=== PATIENT | female | born 1965 | race Caucasian/White ===

== ENCOUNTER 2016-12-09 19:44 | Inpatient (IN) | payer MEDICAID ==
[~2016-12-09] VITALS: Ht 167.6 cm; Wt 97.0 kg
[2016-12-09 21:07] LABS: INR 1.1; PROTIME 14.2 Sec (12.2-14.2); PT RATIO 1.1
[2016-12-09 21:08] LABS: PARTIAL THROMBOPLASTIN TIME 28.1 Sec (25.0-35.0)
[2016-12-09 21:10] LABS: ALANINE AMINOTRANSFERASE 32 IU/L (13-69); ALBUMIN 4.3 g/dl (3.3-4.9); ALBUMIN/GLOBULIN RATIO 1.43; ALKALINE PHOSPHATASE 67 IU/L (42-121); ANION GAP 16 (8-16); ASPARTATE AMINO TRANSFERASE 16 IU/L (15-46); BILIRUBIN,INDIRECT 0.5 mg/dl (0-1.1); BILIRUBIN,TOTAL 0.5 mg/dl (0.2-1.3); BLOOD UREA NITROGEN 9 mg/dl (7-20); CALCIUM 9.2 mg/dl (8.4-10.2); CARBON DIOXIDE 26 mmol/L (21-31); CHLORIDE 103 mmol/L (97-110); CREATININE 0.71 mg/dl (0.44-1.00); GLUCOSE 98 mg/dl (70-220); POTASSIUM 4.2 mmol/L (3.5-5.1); SODIUM 141 mmol/L (135-144); TOTAL PROTEIN 7.3 g/dl (6.1-8.1)
[2016-12-09 21:14] LABS: ABNORMAL IP MESSAGE 1; HEMATOCRIT 21.3 % (37.0-47.0); MEAN CORPUSCULAR HEMOGLOBIN 16.3 pg (29.0-33.0); MEAN CORPUSCULAR HGB CONC 25.8 g/dl (32.0-37.0); MEAN PLATELET VOLUME 9.5 fl (7.4-10.4); PLATELET COUNT 237 10^3/UL (140-415); RED BLOOD COUNT 3.38 10^6/ul (4.20-5.40); RED CELL DISTRIBUTION WIDTH 21.4 % (11.5-14.5); WHITE BLOOD COUNT 4.6 10^3/ul (4.8-10.8)
[2016-12-09 21:16] LABS: HEMOGLOBIN 5.5 g/dl (12.0-16.0); POSITIVE DIFF @See below
[2016-12-09 21:34] LABS: TROPONIN-I < 0.012 ng/ml (0.00-0.12)
[2016-12-09 21:45] LABS: EOSINOPHILS # 0.1 10^3/ul (0.0-0.5); MONOCYTE # 0.2 10^3/ul (0.3-0.9); MONOCYTES % (M) 5 % (0-11); NEUTROPHIL # 3.2 10^3/ul (1.6-7.5)
[2016-12-09 21:46] LABS: HYPOCHROMASIA 3+ (0-0)
[2016-12-09] MEDS ORDERED: SOD CHLORIDE 0.9% 250 ML IV ONE (22:10)
--- NOTE | 2016-12-09 22:21 | ERA ---
ER Documentation Chief Complaint Date/Time DATE: 12/09/16 TIME: 22:20 Chief Complaint Hgb 5.5 beeds blood transfusion HPI Patient is a 51-year-old female with no medical problems who presents with low hemoglobin and high TSH. She had routine blood test done and was called by her doctor to go to the ER because of the abnormal results. She denies bleeding. She does feel diffuse weakness and headache. She has had no treatment as of yet. ROS All systems reviewed and are negative except as per history of present illness. Medications Home Meds No Active Prescriptions or Reported Meds Allergies Allergies: Coded Allergies: No Known Allergy (Unverified , 12/09/16) PMhx/Soc Medical and Surgical Hx: pt denies Medical Hx, pt denies Surgical Hx Hx Miscellaneous Medical Probl: Yes Hx Alcohol Use: No Hx Substance Use: No Hx Tobacco Use: No Smoking Status: Never smoker FmHx Family History: diabetes Physical Exam Vitals Vital Signs Date Time Temp Pulse Resp B/P Pulse Ox O2 Delivery O2 Flow Rate FiO2 12/09/16 20:39 99.5 80 22 142/73 100 Room Air 12/09/16 19:51 99.5 90 22 154/75 97 Physical Exam Const: No acute distress Head: Atraumatic Eyes: Normal Conjunctiva ENT: Normal External Ears, Nose and Mouth. Neck: Full range of motion..~ No meningismus. Resp: Clear to auscultation bilaterally Cardio: Regular rate and rhythm, no murmurs Abd: Soft, non tender, non distended. Normal bowel sounds Skin: Pale skin Back: No midline or flank tenderness Ext: No cyanosis, or edema Neur: Awake and alert Psych: Normal Mood and Affect Result Diagram: 12/09/16202912/09/16 2030 Results 24 hrs Laboratory Tests Test 12/09/16 20:30 White Blood Count 4.610^3/ul Red Blood Count 3.3810^6/ul Hemoglobin 5.5g/dl Hematocrit 21.3% Mean Corpuscular Volume 63.0fl Mean Corpuscular Hemoglobin 16.3pg Mean Corpuscular Hemoglobin Concent 25.8g/dl Red Cell Distribution Width 21.4% Platelet Count 77398^3/UL Mean Platelet Volume 9.5fl Neutrophils % % Segmented Neutrophils % (Manual) 70% Lymphocytes % % Lymphocytes % (Manual) 22% Monocytes % % Monocytes % (Manual) 5% Eosinophils % % Eosinophils % (Manual) 3.0% Basophils % % Nucleated Red Blood Cells % 0.0/100WBC Neutrophils # 3.210^3/ul Absolute Lymphocytes (Manual) 1.010^3/ul Lymphocytes # 1.010^3/ul Monocytes # 0.210^3/ul Absolute Monocytes (Manual) 0.210^3/ul Eosinophils # 0.110^3/ul Basophils # 10^3/ul Nucleated Red Blood Cells # 10^3/ul Hypochromasia 3+ Rouleau 2+ Prothrombin Time 14.2Sec Prothrombin Time Ratio 1.1 INR International Normalized Ratio 1.10 Activated Partial Thromboplast Time 28.1Sec Sodium Level 141mmol/L Potassium Level 4.2mmol/L Chloride Level 103mmol/L Carbon Dioxide Level 26mmol/L Anion Gap 16 Blood Urea Nitrogen 9mg/dl Creatinine 0.71mg/dl Glucose Level 98mg/dl Calcium Level 9.2mg/dl Total Bilirubin 0.5mg/dl Direct Bilirubin 0.00mg/dl Indirect Bilirubin 0.5mg/dl Aspartate Amino Transf (AST/SGOT) 16IU/L Alanine Aminotransferase (ALT/SGPT) 32IU/L Alkaline Phosphatase 67IU/L Troponin I < 0.012ng/ml Total Protein 7.3g/dl Albumin 4.3g/dl Globulin 3.00g/dl Albumin/Globulin Ratio 1.43 Thyroid Stimulating Hormone (TSH) Pending Current Medications Medications (Trade) Dose Ordered Sig/Tonia Route PRN Reason Start Time Stop Time Status Last Admin Dose Admin Sodium Chloride (NS) 250 ml @ 0 mls/hr Q0M ONCE IV 12/09/16 22:10 12/09/16 22:11 DC Ondansetron HCl (Zofran Inj) 4 mg BRIDGE ORDER PRN IV NAUSEA AND/OR VOMITING 12/09/16 22:30 12/10/16 22:29 Acetaminophen (Tylenol Tab) 650 mg ER BRIDGE PRN PO MILD PAIN/FEVER 12/09/16 22:30 12/10/16 22:29 Procedures/MDM EKG read by me: Rate/Rhythm: Regular rate and rhythm at a rate of 77 Intervals: Normal Impression: No evidence of ischemia or arrhythmia Patient is a 51-year-old female who presents with low hemoglobin and high TSH. I believe the patient likely has hypothyroidism but I am concerned about her hemoglobin of 5.5. She is likely having weakness diffusely because of this hemoglobin. The patient will be given 4 units of packed red blood cells for resuscitation. The patient will be admitted to the care of Dr. Francis from the panel team for admission. At this point there is no sign of active bleeding. Critical Care: Time: 35 minutes excluding all billable procedures. Treatments/Evaluations: Close monitoring and treatment of unstable vital signs, cardiorespiratory, and neurologic status, while maintaining tight balance of fluid, respiratory, and cardiac interventions. Departure Diagnosis: Primary Impression: Anemia Qualified Code: D64.9 - Anemia, unspecified type Additional Impression: Hypothyroid Qualified Code: E03.9 - Hypothyroidism, unspecified type Condition: Serious ARUNA BARRETT MD Dec 09, 2016 22:21
[2016-12-09] MEDS ORDERED: ONDANSETRON 4 MG INJ IV PRN (22:30)
[2016-12-09] MEDS ORDERED: ACETAMINOPHEN 325 MG TAB PO PRN (22:30)
[2016-12-10] VITALS (12 sets, daily range): BP systolic 119–183; BP diastolic 67–83; PULSE 70–87; RESP 14–34; TEMP 98.8; Ht 167.6 cm; Wt 97.0 kg
[2016-12-10] MEDS ORDERED: ONDANSETRON 4 MG INJ IV PRN ×2 (00:30→18:30)
[2016-12-10] MEDS ORDERED: BISACODYL (EC) 5 MG TAB PO PRN (00:30)
[2016-12-10] MEDS ORDERED: NACL 0.9% 3 ML SYG IV SCH (00:30)
[2016-12-10] MEDS ORDERED: DOCUSATE SODIUM 100 MG CAP PO PRN (00:30)
[2016-12-10] MEDS ORDERED: FUROSEMIDE 20 MG INJ IV ONE (00:41)
--- NOTE | 2016-12-10 02:54 | HP ---
Date/Time of Note Date/Time of Note DATE: 12/10/16 TIME: 02:37 Assessment/Plan VTE Prophylaxis VTE Prophylaxis Intervention: SCD's Assessment/Plan Chief Complaint/Hosp Course This is a 51-year-old female being admitted to the telemetry floor for: #1 symptomatic anemia: Genitourinary versus GI versus possible malignancy. Microcytic anemia. At the current time we can attribute this possibly to her heavy menstrual cycle. I will be obtaining vaginal ultrasound. Will also get a stool occult blood. Of concern is the 10 pound weight loss and the left breast lump that she feels. Her last mammogram was approximately 3 years ago. At the current time I will obtain an ultrasound of the breasts bilaterally. She will be getting 4 units of packed red blood cells. Will get hematology on board as there also is rouleaux formation on her CBC. We will get OB on board if indicated if there is an abnormal vaginal ultrasound. And GI on board if there is a positive fecal occult stool. Also obtain iron studies and patient likely will need to be on iron supplements. Normal diet. Folate and vitamin B12 levels. #2 weight loss: Concern for possible malignancy in the setting of severe anemia as well as possible left breast lump. Bilateral breast ultrasound ordered. Ultrasound of thyroid also ordered as well, fecal occult blood ordered. #3 new onset hypothyroidism: Patient had an elevated TSH and a low free T4 level. Thyroid ultrasound ordered. This possibly could also be contributing to her weakness. Endocrine consult. #4 obesity: We will also check hemoglobin A1c and lipid panel. #5 DVT and GI prophylaxis: SCDs, acid yeimy. Further treatment strategy will be implemented as per the clinical course. Problems: HPI/ROS Admit Date/Time Admit Date/Time Hx of Present Illness Chief complaint: Tired and weak, low hemoglobin through outpatient blood work The patient is a 51-year-old female with no medical problems who presents with low hemoglobin and high TSH. She had routine blood test done and was called by her doctor to go to the ER because of the abnormal results. She denies bleeding. She does feel diffuse weakness and headache. She states that she has been feeling weak and lightheaded for weeks. She states that she has irregular periods however they are with heavy bleeding and abdominal pain. Patient also reports that she has experienced approximately 10 pound weight loss over the last 2 months. Also of note patient was questioned regarding any previous mammogram history she states that she had a mammogram 3 years ago. She also states that she had a breast cyst that was removed from her left breast now she appears to have noticed another sort of lump on the left breast on the lateral side which is different from the location of her previous cyst. She denies any rectal bleeding. Denies any nausea vomiting or fevers. The headache she describes as bandlike. Denies any focal weakness. She does report that some time for the headache she did take ibuprofen. Allergies: NKDA Medications: None ROS Const: As per HPI Eyes : No pain discharge or redness or change in visual acuity ENT: No pain, sore throat, congestion, congestion, dysphagia or discharge Respiratory: No shortness of breath, cough, sputum, wheezing, or pleuritic pain Cardiovascular: No chest pain, palpitation, PND, or edema GI : no change in appetite, abdominal pain, nausea, vomiting, diarrhea, constipation, or change in the color his stool Genitourinary: No dysuria, hematuria, flank pain , discharge or CVA tenderness Musculoskeletal: No joint pain, back pain, neck pain, restricted range of motion in neck or joints Skin: No rash, bruising or hives Neuro: As per HPI Endocrine: No polyuria, polydipsia, temperature intolerance Psych: No hallucination, depression, anxiety or suicidal ideation PMH/Family/Social Past Medical History Left breast cyst Past Surgical History Left breast cyst removal, 1 Family History Significant Family History: diabetes (Mom), other (Anemia mom) Social History Alcohol Use: none Smoking Status: Never smoker Drug Use: none Exam/Review of Systems Vital Signs Vitals Vital Signs Date Time Temp Pulse Resp B/P Pulse Ox O2 Delivery O2 Flow Rate FiO2 12/09/16 20:39 99.5 80 22 142/73 100 Room Air Exam Exam General: Patient is a well-developed female lying in bed in no acute distress, she does appear tired HEENT: Atraumatic, normocephalic. The pupils are equal, round and reactive. Extraocular motor are intact, pale conjunctiva Neck: Supple with full range of motion. No rigidity or meningismus Chest: Nontender Lungs: Clear to auscultation bilaterally no crackles rales or wheezing Heart: Normal S1-S2, Regular rhythm and rate. No overt murmurs appreciated Abdomen: Soft , nontender, nondistended , bowel sounds are present. No guarding no rebound tenderness , No masses or organomegaly. No costovertebral temporal angle mass Extremities: Normal to inspection, no edema no cyanosis Neurologic: Normal mental status, speech normal, cranial nerves II through XII are intact, motor and sensory are intact, no focal weakness Genitourinary: Exam deferred. Additional Comments EKG Rate/Rhythm: Regular rate and rhythm at a rate of 77 Intervals: Normal Impression: No evidence of ischemia or arrhythmia As per ED physician document Labs Result Diagram: 12/09/16202912/09/162029 Medications Medications Current Medications Ondansetron HCl (Zofran Inj) 4 mg Q6H PRN IV NAUSEA AND/OR VOMITING; Start 03/18 at 00:30 Acetaminophen (Tylenol Tab) 650 mg Q6H PRN PO PAIN LEVEL 1-3 OR FEVER; Start at 00:30 Docusate Sodium (Colace) 100 mg Q12H PRN PO CONSTIPATION; Start 12/10/16 at 00: 30 Bisacodyl (Dulcolax) 5 mg DAILY PRN PO CONSTIPATION; Start 12/10/16 at 00:30 Pantoprazole (Protonix Tab) 40 mg DAILY@06 PO ; Start 12/10/16 at 06:00 EDOUARD CAMEJO Dec 10, 2016 02:49
[2016-12-10] MEDS ORDERED: PANTOPRAZOLE (EC) 40 MG TAB PO SCH (06:00)
[2016-12-10 06:05] LABS: ABNORMAL IP MESSAGE 1; BASOPHILS % 0.4 % (0.0-2.0); EOSINOPHILS # 0.1 10^3/ul (0.0-0.5); EOSINOPHILS % 1.9 % (0.0-7.0); HEMATOCRIT 30.8 % (37.0-47.0); HEMOGLOBIN 8.3 g/dl (12.0-16.0); LYMPHOCYTES # 0.9 10^3/ul (0.8-2.9); LYMPHOCYTES % 18.1 % (15.0-51.0); MEAN CORPUSCULAR HEMOGLOBIN 18.5 pg (29.0-33.0); MEAN CORPUSCULAR HGB CONC 26.9 g/dl (32.0-37.0); MEAN CORPUSCULAR VOLUME 68.6 fl (82.0-101.0); MEAN PLATELET VOLUME 9.3 fl (7.4-10.4); MONOCYTE # 0.3 10^3/ul (0.3-0.9); NEUTROPHIL # 3.8 10^3/ul (1.6-7.5); NEUTROPHILS % 73.2 % (39.0-77.0); PLATELET COUNT 247 10^3/UL (140-415); RED BLOOD COUNT 4.49 10^6/ul (4.20-5.40); RED CELL DISTRIBUTION WIDTH 26.7 % (11.5-14.5); WHITE BLOOD COUNT 5.2 10^3/ul (4.8-10.8)
[2016-12-10 06:34] LABS: POSITIVE DIFF @See below
[2016-12-10 06:48] LABS: IRON 27 ug/dl (35-150)
[2016-12-10 06:54] LABS: ALBUMIN 4.6 g/dl (3.3-4.9); ALBUMIN/GLOBULIN RATIO 1.27; BILIRUBIN,INDIRECT 0.8 mg/dl (0-1.1); BILIRUBIN,TOTAL 0.8 mg/dl (0.2-1.3); CALCIUM 9.6 mg/dl (8.4-10.2); CHOL/HDL RATIO 2.9 RATIO; CREATININE 0.54 mg/dl (0.44-1.00); MAGNESIUM 2.2 mg/dl (1.7-2.5); POTASSIUM 4.2 mmol/L (3.5-5.1); TOTAL PROTEIN 8.2 g/dl (6.1-8.1)
[2016-12-10 06:58] LABS: TOTAL IRON BINDING CAPACITY 422 ug/dl (241-421)
[2016-12-10 07:03] LABS: THYROID STIMULATING HORMONE 10.9 MIU/L (0.465-4.680)
[2016-12-10 08:24] LABS: FOLATE 17.2 ng/ml (2.8-20.0)
[2016-12-10] MEDS ORDERED: SOD FERRIC GLUC COMPLX 125 MG in SOD CHLORIDE 0.9% 100 ML IVPB SCH ×2 (09:30→11:00)
[2016-12-10] MEDS ORDERED: hydrALAzine 20 MG INJ IV PRN (09:30)
--- NOTE | 2016-12-10 10:20 | RADRPT ---
PROCEDURE: US Pelvis. CLINICAL INDICATION: Anemia, pain TECHNIQUE: Sonographic evaluation of the pelvis was performed utilizing transabdominal technique o nly. The patient refused transvaginal imaging. Curved array transabdominal transducer was utilized. Images were reviewed on the high-resolution PACS workstation. COMPARISON: None available FINDINGS: The uterus is normal in size, echogenicity, and morphology measuring 12.8 x 6.4 x 7.2 cm in dimensio n. The uterus is anteverted in normal position. The endometrium measures 15.8 mm in thickness. The right ovary measures 4.2 x 3.0 x 3.5 cm in dimension, and demonstrates a 2.8 cm simple-appearing cyst. The left ovary measures 4.3 x 2.1 x 3.1 cm in dimension, and demonstrates a 2.2 cm simple-ap pearing cyst. No ovarian torsion, adnexal mass or pelvic free fluid is identified. IMPRESSION: 1. Bilateral simple-appearing ovarian cysts are seen measuring up to 2.8 cm on the right. No adnex al mass or pelvic free fluid is identified. 2. Uterus is grossly unremarkable. RPTAT: EE .Adam Edmonds MD, MD Date Time Electronically viewed and signed by .Adam Edmonds MD, on 12/10/2016 10:19 .R/
--- NOTE | 2016-12-10 10:32 | CONS ---
Date/Time of Note Date/Time of Note DATE: 12/10/16 TIME: 10:22 Assessment/Plan Assessment/Plan Additional Assessment/Plan Assessment * Anemia r/o upper GI bleed vs lower vs gynecological vs others * Menorrhagia Plan * Stool for occult blood * EGD today risks and benefit explained to patient and daughter and agreed with the planned procedure * PPI daily * Monitor hemoglobin and hematocrit daily * case discuss with DR Freedman * Further orders will depend on clinical course Consultation Date/Type/Reason Admit Date/Time Date of Consultation: Dec 10, 2016 Type of Consultation: Gastroenterology Reason for Consultation Anemia Referring Provider: KAMILA RICO NP Hx of Present Illness 51 year old female with no known past medical history was sent by her primary provider to emergency room because of low hemoglobin 5.Patient denies any hematemesis,abdominal pain,hematochezia ,fever,shortness of breath,nor history of recent travel or chronic intake of NSAIDS bit has been complaining of body weakness and loss of appetite.Initial hemoglobin 5 transfuse with 2 units of PRBC ,present hemoglobin is 8.3.The patient also heaving a heavy menstrual flow lasting for 5 days Constitutional: improved, no complaints Eyes: no complaints ENT: no complaints Respiratory: no complaints Cardiovascular: no complaints Gastrointestinal: no complaints Genitourinary: no complaints Musculoskeletal: no complaints Skin: no complaints Neurologic: no complaints Endocrine: no complaints Lymphatic: no complaints Psychological: nl mood/affect, no complaints Immunologic: no complaints Past Medical History Medical History: no pertinent history Past Surgical History Past Surgical Hx: no surgical history Social History Alcohol Use: none Smoking Status: Never smoker Drug Use: none Exam/Review of Systems Vital Signs Vitals Vital Signs Date Time Temp Pulse Resp B/P Pulse Ox O2 Delivery O2 Flow Rate FiO2 12/10/16 08:08 98.7 87 20 183/81 100 Room Air Exam Constitutional: alert, oriented, well developed Psych: nl mood/affect, no complaints Head: atraumatic, normocephalic Eyes: EOMI, PERRL, nl conjunctiva, nl lids, nl sclera ENMT: nl external ears & nose, nl lips & teeth, nl nasal mucosa & septum Neck: non-tender, supple Respiratory: clear to auscultation, normal air movement Cardiovascular: nl pulses, regular rate and rhythm Gastrointestinal: nl liver, spleen, non-tender, soft Musculoskeletal: nl extremities to inspection, nl gait and stance Extremities: normal pulses Neurological: [employer] P[employer] II-XII intact, nl mental status, nl speech, nl strength Skin: nl turgor, No rash or lesions Lymph: nl lymph nodes Results Result Diagram: 12/10/16 0552 12/10/16 0552 Results 24 hrs Laboratory Tests Test 12/09/16 20:30 12/10/16 05:52 White Blood Count 4.6 L 5.2 Red Blood Count 3.38 L 4.49 # Hemoglobin 5.5 *L 8.3 #L Hematocrit 21.3 L 30.8 #L Mean Corpuscular Volume 63.0 L 68.6 L Mean Corpuscular Hemoglobin 16.3 L 18.5 L Mean Corpuscular Hemoglobin Concent 25.8 L 26.9 L Red Cell Distribution Width 21.4 H 26.7 #H Platelet Count 237 247 Mean Platelet Volume 9.5 9.3 Neutrophils % 73.2 Segmented Neutrophils % (Manual) 70 Lymphocytes % 18.1 Lymphocytes % (Manual) 22 Monocytes % 6.0 Monocytes % (Manual) 5 Eosinophils % 1.9 Eosinophils % (Manual) 3.0 Basophils % 0.4 Nucleated Red Blood Cells % 0.0 0.0 Neutrophils # 3.2 3.8 Absolute Lymphocytes (Manual) 1.0 Lymphocytes # 1.0 0.9 Monocytes # 0.2 L 0.3 Absolute Monocytes (Manual) 0.2 L Eosinophils # 0.1 0.1 Basophils # 0.0 Nucleated Red Blood Cells # 0.0 Hypochromasia 3+ Rouleau 2+ Prothrombin Time 14.2 Prothrombin Time Ratio 1.1 INR International Normalized Ratio 1.10 Activated Partial Thromboplast Time 28.1 Sodium Level 141 145 H Potassium Level 4.2 4.2 Chloride Level 103 100 Carbon Dioxide Level 26 28 Anion Gap 16 21 H Blood Urea Nitrogen 9 7 Creatinine 0.71 0.54 Glucose Level 98 102 Calcium Level 9.2 9.6 Total Bilirubin 0.5 0.8 Direct Bilirubin 0.00 0.00 Indirect Bilirubin 0.5 0.8 Aspartate Amino Transf (AST/SGOT) 16 18 Alanine Aminotransferase (ALT/SGPT) 32 34 Alkaline Phosphatase 67 74 Troponin I < 0.012 Total Protein 7.3 8.2 H Albumin 4.3 4.6 Globulin 3.00 3.60 H Albumin/Globulin Ratio 1.43 1.27 Thyroid Stimulating Hormone (TSH) 7.550 H 10.900 H Free Thyroxine 0.63 L Hemoglobin A1c 5.0 Magnesium Level 2.2 Iron Level 27 L Total Iron Binding Capacity 422 H Percent Iron Saturation 6 L Triglycerides Level 126 Cholesterol Level 130 LDL Cholesterol, Calculated 61 HDL Cholesterol 44 Cholesterol/HDL Ratio 2.9 Vitamin B12 Level < 159 L Folate 17.2 Medications Medications Current Medications Ondansetron HCl (Zofran Inj) 4 mg Q6H PRN IV NAUSEA AND/OR VOMITING; Start 03/18 at 00:30 Acetaminophen (Tylenol Tab) 650 mg Q6H PRN PO PAIN LEVEL 1-3 OR FEVER; Start at 00:30 Docusate Sodium (Colace) 100 mg Q12H PRN PO CONSTIPATION; Start 12/10/16 at 00: 30 Bisacodyl 5 mg 5 mg DAILY PRN PO CONSTIPATION; Start 12/10/16 at 00:30 Ferric Sodium Gluconate Complex/ Sodium Chloride (Ferrlecit/NS) 110 ml @ 100 mls/hr Q24H IVPB ; Start 12/10/16 at 11:00; Stop 12/12/16 at 12:05 Pantoprazole (Protonix Iv) 40 mg BID@06,18 IV ; Start 12/10/16 at 18:00 Cyanocobalamin (Vitamin B12) 1,000 mcg DAILY PO ; Start 12/10/16 at 11:00 Hydralazine HCl (Apresoline) 10 mg Q6H PRN IV SBP>160; Start 12/10/16 at 09:30 ERVIN BRYAN NP Dec 10, 2016 10:32
[2016-12-10] MEDS ORDERED: CYANOCOBALAMIN 500 MCG TAB PO SCH (11:00)
--- NOTE | 2016-12-10 12:11 | CONS ---
DATE OF ADMISSION: 12/09/2016 DATE OF CONSULTATION: 12/10/2016 REASON FOR CONSULTATION: Anemia. Dear Dr. Francis: Thank you very much for asking us to see this very pleasant patient in hematologic consultation. As you know, Ms Chavira is a 51-year-old premenopausal female, who is a 3, para 2, AB1. The patient is admitted to [facility] after being sent from her primary physician to the emergency room. The patient apparently had been seen by her primary physician on December 07. The patient was being seen at that time because of complaints of left ear pain. Examination is said to have shown evidence of infection and the patient was given some type of antibiotic. She took this twice a day for 3 days. The ear pain has not completely subsided. At the same time, the patient had been experiencing headaches, which have been a chronic problem. She also has been experiencing increasing fatigue and weakness. This has been associated with some dyspnea on exertion. She has not had chest pain but the patient has definitely had orthostatic symptoms. The patient has been experiencing heavy menstrual flow. The patient does state that her menstrual periods have always been heavy as noted. The patient, as mentioned was sent to the emergency room after she received a call from her primary physician, who stated that of laboratory obtained on December 07 showed severe anemia, as well as an elevated TSH. On arrival in the emergency room, the patient's white count was 4600, with 70 percent neutrophils, 22 percent lymphocytes, 5 percent monocytes and 3 percent eosinophils, red blood cell count was 3.38 million, hemoglobin 5.5, hematocrit 21.3, MCV 63.0, MCHC is 61.3, MCHC 25, RDW 21.4, platelet count 237,000 and MPV is 93. The other laboratory includes a comprehensive metabolic panel. This was normal except for sodium of 145 and anion gap of 21. The creatinine was 0.45, BUN 7, glucose 102. The total bilirubin was 0.8, direct was 0, AST 18, ALT 34, alkaline phosphatase 74, total protein 8.2 with albumin of 4.6. Other studies have included a TSH, which was elevated at 7.55 on admission. A recheck was 10.9. T4 level was 0.63. Other studies include an iron of 27, total iron-binding capacity of 422, percent saturation of 6 percent and a ferritin of 2.9. B12 is said to be less than 159 and folic acid level 17.2. The patient has had an ultrasound of the pelvis, which shows bilateral simple-appearing ovarian cyst. There are no adnexal masses or pelvic free fluid. The uterus is not enlarged and appears otherwise normal. The patient states she has never been told of any anemia in the past. She has, however, been chronically weak. As mentioned, she has had repeatedly heavy menstrual periods. The patient denies any history of hypertension, heart disease, diabetes, renal, or hepatic disease. PAST SURGICAL HISTORY: Have included 1 section and an excision of a benign cyst from the left breast. GYNECOLOGICAL HISTORY: Patient is presently on a menstrual period. She is 3, para 2, AB1. She has had 1 section. The patient states she has not had a mammogram at least since the excision of the cyst 3 years ago. She states she recently has felt a possible mass in the left breast. This is not near the patient's original cyst. SOCIAL HISTORY: Patient was born in [place]. She denies any known exposures to industrial toxins or ionizing radiation. She has not worked outside the home in approximately 11 years. Previously, she worked in a shoe factory assembling shoes. Apparently, she was applying glue in order to apply the soles of the shoe to the shoe itself. The patient does not smoke or use alcoholic beverages. FAMILY HISTORY: Remarkable in that her mother at 72 of diabetes-related complications. Her father in his 60s after some sort of accident. She has 8 siblings. One sister at an early age, apparently from blood loss due to hemorrhoidal bleeding. This sister is also said to have had Grave's disease. This sister's daughter has Grave's disease as well. There is 1 brother who apparently has diabetes. Her children are in good health. REVIEW OF SYSTEMS: At this time, is positive only for those things mentioned above, which included the left ear pain, as well as the marked fatigue with orthostatic changes and headache. PHYSICAL EXAMINATION: GENERAL APPEARANCE: At this time, reveals a well-developed, well- nourished female, who is in no acute distress. VITAL SIGNS: Temperature 98.7 orally, pulse 87 per minute and regular, respirations 20, blood pressure 183/81, and pulse oximetry is 100 percent on room air. SKIN: Pale. No ecchymosis. No petechiae or rashes. HEENT: Normocephalic. No evidence of trauma. The pupils equal, round, react to light and accommodation. There is no scleral icterus. Extraocular movements are intact. The conjunctivae and oral mucosa are pale. There are no mucosal lesions noted. The tongue is well papillated. There is no gingival hyperplasia. No hypertrophy of Waldeyer's ring. No mucosal telangiectasias. NECK: Supple. No jugular distention, or thyroid enlargement. No carotid bruits. CHEST: Chest clear to auscultation, percussion. No rhonchi, wheezes, rales, or rubs. There is no pain on percussion of spine, sternum, clavicles or ribs. BREASTS: Symmetrical. No masses, skin retraction, nipple inversion. I cannot feel a mass in the in the left breast, which the patient states that she has felt recently. HEART: Regular sinus rhythm. No S3, S4, murmurs, no rubs. ABDOMEN: Mildly obese, but soft. There is no organomegaly, masses, or tenderness. Bowel sounds are active. EXTREMITIES: Good range of motion. No clubbing, edema, or cyanosis. No palpable cords or Homans sign. NEUROLOGIC: Normal. LABORATORY: I have reviewed the patient's peripheral smear. There is marked hyperchromasia and microcytosis of the red blood cells. There are no fragmented red blood cells. White blood cells appear normal in number and distribution. There are no immature neutrophils, no hypersegmented polys and no nucleated red blood cells. The lymphocytes are normal in number and appearance. Platelets are normal in number and morphology. IMPRESSION: This patient has an obvious iron-deficiency anemia. I feel that the most likely etiology for this patient's iron deficiency is repeatedly heavy menstrual blood loss, which has not been replaced by dietary intake of iron. The patient does not have any gastrointestinal symptoms. She denies any hematemesis, melena or hematochezia, but I do feel that the gastrointestinal blood loss as a cause for this patient's iron-deficiency must be ruled out. It is interesting to note that the patient's B12 level is stated to be less than 159. There are certainly no megaloblastic changes seen on review of the peripheral smear. At this time, I will repeat the B12 level. We will also obtain a homocystine level, as well as a methylmalonic acid level. Other studies will include intrinsic factor, blocking antibodies and parietal cell antibodies. If this patient is found to have actual via B12 deficiency, she will require parental replacement and then long- term monthly vitamin B12 therapy. As noted, the patient does have significant iron deficiency, both on review of the peripheral smear and verified by the patient's iron studies. She has received 3 units of packed red blood cells thus far, but based on the patient's weight of 97 kg and her hemoglobin on admission of 5.5, she will require a total of 3300 mg of elemental iron. I will start the patient on iron replacement here in the hospital. She will receive Ferrlecit 125 mg daily. Patient will also be given folic acid supplementation concurrently. It would be more efficient to be able to replace this patient's iron with Injectafer (ferric carboxymaltose). This would allow 750 mg of elemental iron to begin with each dose. Unfortunately, this product is not available in this hospital. It is also interesting to note, this patient's TSH level is elevated and T4 level is decreased consistent with hypothyroidism. Apparently, a thyroid scan has already been ordered. We will also order antimicrosomal antibodies, as well as thyroglobulin assay. I have also ordered an ultrasound of the thyroid. As noted, this patient has a sister who is stated to have had Grave's disease and her niece, who is the daughter of that sister, also has Grave's disease. There is a mention of increased rouleaux formation on review of the patient's CBC. There is some increased rouleaux formation, but I feel this is related to the patient's anemia rather than to increased globulins. I will, however, order a serum protein electrophoresis, immunofixation and quantitative immunoglobulins. Once again, thank you very much for the opportunity of participating in the medical care of this very pleasant patient. I will be happy to follow this patient with you and assist in her hematologic evaluation and followup as necessary. Dictated By: Enoc Turner MD /duke/hanna /Document#: [id number]
[2016-12-10 12:54] LABS: LACTATE DEHYDROGENASE 356 IU/L (313-618)
[2016-12-10 13:00] LABS: IMMUNOGLOBULIN A 199 mg/dl (70-400); IMMUNOGLOBULIN G 1208 mg/dl (700-1600); IMMUNOGLOBULIN M 115 mg/dl (40-230)
--- NOTE | 2016-12-10 14:42 | RADRPT ---
PROCEDURE: BREAST ULTRASOUND CLINICAL INDICATION: Left breast lump. TECHNIQUE: Ultrasound of the whole left breast and axilla is completed. COMPARISON: None. FINDINGS: The ultrasound of the left breast is unremarkable. No cystic or solid mass is identified. There is no suspicious left axillary adenopathy. IMPRESSION: Unremarkable left breast ultrasound. Recommend outpatient diagnostic mammogram to complete the yadi p for the palpable lump. BIRADS 1 (NEGATIVE) RPTAT: UU .Javier Hassan MD, MD Date Time Electronically viewed and signed by .Javier Hassan MD, on 12/10/2016 14:41 .Z/
--- NOTE | 2016-12-10 14:58 | RADRPT ---
PROCEDURE: US Thyroid. CLINICAL INDICATION: Elevated thyroid stimulating hormone. Anemia. TECHNIQUE: High-resolution sonography of the thyroid was performed in the axial and sagittal plane s. COMPARISON: None. FINDINGS: The right lobe measures 4.0 x 1.9 x 2.1 cm. The left lobe measures 3.9 x 1.3 x 1.8 cm. The isthmus measures 0.3 cm. There is no thyroid nodule. Thyroid echogenicity is normal. The thyroid is diffusely heterogeneous. IMPRESSION: 1. Diffusely heterogeneous thyroid with no discrete nodule. RPTAT: QQ .Josh Prajapati MD, Date Time Electronically viewed and signed by .Josh Prajapati MD, on 12/10/2016 14:58 .R/
[2016-12-10] MEDS: CYANOCOBALAMIN 1000 MCG INJ IM SCH (16:00)
[2016-12-10] MEDS ORDERED: LEVOTHYROXINE 100 MCG TAB PO ONE (17:30)
[2016-12-10] MEDS ORDERED: LIDOCAINE 2% (SDV) 5 ML INJ ONE (17:47)
[2016-12-10] MEDS ORDERED: PROPOFOL 0 ML ONE (17:47)
[2016-12-10] MEDS ORDERED: PROPOFOL 20 ML ONE ×2 (18:08)
--- NOTE | 2016-12-10 18:14 | OPPN ---
Date/Time of Note Date/Time of Note DATE: 12/10/16 TIME: 18:11 Operative Report Preoperative Diagnosis Anemia Postoperative Diagnosis Impression: * Multiple gastric polyps fundus body and proximal antrum, ranging in size from 5 mm to 2 cm * Largest 2 polyps measuring 2 cm and 1.5 cm with superficial ulceration snared and largest 1 retrieved * Site of largest polypectomy with persistent oozing, control with Endo Clip 3 * Antral gastritis. Rule out H. pylori infection. Biopsies obtained Plan: * Close observation * Review pathology * Plan further endoscopy with polypectomy . Operation/Procedure Performed Endoscopy with polypectomy Endoscopy with Endo Clip placement Endoscopy with biopsies Provider: MESFIN PENNINGTON MD Anesthesia Type: MAC Estimated blood loss: 10 - 50 ml's Transfusion Required: no Specimens Large gastric polyp Grafts/Implants: none Complications: no MESFIN PENNINGTON MD Dec 10, 2016 18:14
[2016-12-10] MEDS ORDERED: DIPHENHYDRAMINE 50 MG INJ IV PRN (18:30)
[2016-12-10] MEDS ORDERED: HYDROmorphONE (0.2 MG/ML) 10ML SYG IV PRN (18:30)
[2016-12-10] MEDS: SUCRALFATE (100 MG/ML) 10ML CUP PO SCH (20:57)
[2016-12-11 04:07] VITALS: BP 159/74; RESP 16
[2016-12-11] MEDS: LEVOTHYROXINE 100 MCG TAB PO SCH (05:25)
[2016-12-11] MEDS: PANTOPRAZOLE 40 MG INJ IV SCH ×2 (05:25→17:55)
[2016-12-11 05:57] LABS: ABNORMAL IP MESSAGE 1; BASOPHILS % 0.2 % (0.0-2.0); EOSINOPHILS % 0.8 % (0.0-7.0); HEMATOCRIT 30.9 % (37.0-47.0); HEMOGLOBIN 8.6 g/dl (12.0-16.0); LYMPHOCYTES # 1.1 10^3/ul (0.8-2.9); LYMPHOCYTES % 22.1 % (15.0-51.0); MEAN CORPUSCULAR HEMOGLOBIN 19.4 pg (29.0-33.0); MEAN CORPUSCULAR HGB CONC 27.8 g/dl (32.0-37.0); MEAN CORPUSCULAR VOLUME 69.8 fl (82.0-101.0); MEAN PLATELET VOLUME 9.4 fl (7.4-10.4); MONOCYTE # 0.4 10^3/ul (0.3-0.9); NEUTROPHIL # 3.3 10^3/ul (1.6-7.5); NEUTROPHILS % 68.5 % (39.0-77.0); NUCLEATED RED BLOOD CELLS% 0.4 /100WBC (0.0-0.0); PLATELET COUNT 201 10^3/UL (140-415); RED BLOOD COUNT 4.43 10^6/ul (4.20-5.40); RED CELL DISTRIBUTION WIDTH 27.4 % (11.5-14.5); WHITE BLOOD COUNT 4.9 10^3/ul (4.8-10.8)
[2016-12-11 06:22] LABS: POSITIVE DIFF @See below
[2016-12-11 06:22] LABS: MAGNESIUM 2.2 mg/dl (1.7-2.5); PHOSPHORUS 4.6 mg/dl (2.5-4.9)
[2016-12-11 06:24] LABS: ALBUMIN/GLOBULIN RATIO 1.25; BILIRUBIN,INDIRECT 1.2 mg/dl (0-1.1); BILIRUBIN,TOTAL 1.2 mg/dl (0.2-1.3); CALCIUM 9.3 mg/dl (8.4-10.2); CREATININE 0.5 mg/dl (0.44-1.00); POTASSIUM 3.9 mmol/L (3.5-5.1); TOTAL PROTEIN 7.2 g/dl (6.1-8.1)
[2016-12-11 08:44] VITALS: BP 143/77; RESP 18
[2016-12-11] MEDS: SUCRALFATE (100 MG/ML) 10ML CUP PO SCH ×4 (08:46→20:12)
[2016-12-11] MEDS: CYANOCOBALAMIN 1000 MCG INJ IM SCH (08:47)
--- NOTE | 2016-12-11 09:36 | PN ---
Date/Time of Note Date/Time of Note DATE: 12/11/16 TIME: 09:31 Assessment/Plan VTE Prophylaxis VTE Prophylaxis Intervention: ambulation Lines/Catheters IV Catheter Type (from Nrs): Saline Lock Assessment/Plan Assessment/Plan Assessment * Anemia upper GI bleed EGD Multiple gastric polyps fundus body and proximal antrum, ranging in size from 5 mm to 2 cm Largest 2 polyps measuring 2 cm and 1.5 cm with superficial ulceration snared and largest 1 retrieved Site of largest polypectomy with persistent oozing, control with Endo Clip 3 Antral gastritis. Rule out H. pylori infection. Biopsies obtained * Menorrhagia Plan * Stool for occult blood * await biopsy result * PPI daily * Monitor hemoglobin and hematocrit daily * case discussed with DR Freedman * Further orders will depend on clinical course Subjective 24 Hr Interval Summary Free Text/Dictation * Course reviewed with RN * Patient seen and examined * EGD Multiple gastric polyps fundus body and proximal antrum, ranging in size from 5 mm to 2 cm * Largest 2 polyps measuring 2 cm and 1.5 cm with superficial ulceration snared and largest 1 retrieved * Site of largest polypectomy with persistent oozing, control with Endo Clip 3 * Antral gastritis. Rule out H. pylori infection. Biopsies obtained * No untoward incident overnight Exam/Review of Systems Vital Signs Vitals Vital Signs Date Time Temp Pulse Resp B/P Pulse Ox O2 Delivery O2 Flow Rate FiO2 12/11/16 08:44 98.1 71 18 143/77 97 12/10/16 18:52 Room Air 12/10/16 18:20 2.0 Intake and Output 12/10/16 12/10/16 12/11/16 15:00 23:00 07:00 Intake Total 0 ml 1160 ml Balance 0 ml 1160 ml Exam Constitutional: alert, oriented Psych: no complaints Neck: non-tender, supple Cardiovascular: nl pulses, regular rate and rhythm Gastrointestinal: non-tender, soft Musculoskeletal: nl extremities to inspection, nl gait and stance Neurological: nl mental status, nl speech, nl strength Skin: nl turgor Lymph: nl lymph nodes Results Result Diagram: 12/11/16 0450 12/11/16 0450 Results 24 hrs Laboratory Tests Test 12/10/16 11:53 12/11/16 04:35 12/11/16 04:50 Lactate Dehydrogenase 356 Vitamin B12 Level < 159 L Random Cortisol 8.2 Immunoglobulin A 199 Immunoglobulin G 1208 Immunoglobulin M 115 Phosphorus Level 4.6 Magnesium Level 2.2 White Blood Count 4.9 Red Blood Count 4.43 Hemoglobin 8.6 L Hematocrit 30.9 L Mean Corpuscular Volume 69.8 L Mean Corpuscular Hemoglobin 19.4 L Mean Corpuscular Hemoglobin Concent 27.8 L Red Cell Distribution Width 27.4 H Platelet Count 201 Mean Platelet Volume 9.4 Neutrophils % 68.5 Lymphocytes % 22.1 Monocytes % 8.0 Eosinophils % 0.8 Basophils % 0.2 Nucleated Red Blood Cells % 0.4 H Neutrophils # 3.3 Lymphocytes # 1.1 Monocytes # 0.4 Eosinophils # 0.0 Basophils # 0.0 Nucleated Red Blood Cells # 0.0 Sodium Level 142 Potassium Level 3.9 Chloride Level 102 Carbon Dioxide Level 27 Anion Gap 17 H Blood Urea Nitrogen 9 Creatinine 0.50 Glucose Level 95 Calcium Level 9.3 Total Bilirubin 1.2 Direct Bilirubin 0.00 Indirect Bilirubin 1.2 H Aspartate Amino Transf (AST/SGOT) 20 Alanine Aminotransferase (ALT/SGPT) 30 Alkaline Phosphatase 70 Total Protein 7.2 # Albumin 4.0 Globulin 3.20 Albumin/Globulin Ratio 1.25 Medications Medications Current Medications Ondansetron HCl (Zofran Inj) 4 mg Q6H PRN IV NAUSEA AND/OR VOMITING; Start 03/18 at 00:30 Acetaminophen (Tylenol Tab) 650 mg Q6H PRN PO PAIN LEVEL 1-3 OR FEVER; Start at 00:30 Docusate Sodium (Colace) 100 mg Q12H PRN PO CONSTIPATION; Start 12/10/16 at 00: 30 Bisacodyl (Dulcolax) 5 mg DAILY PRN PO CONSTIPATION; Start 12/10/16 at 00:30 Pantoprazole (Protonix Iv) 40 mg BID@06,18 IV Last administered on 12/11/16t 05 :25; Admin Dose 40 MG; Start 12/10/16 at 18:00 Cyanocobalamin (Vitamin B12) 1,000 mcg DAILY PO ; Start 12/10/16 at 11:00; Status Future Hold Hydralazine HCl 10 mg 10 mg Q6H PRN IV SBP>160; Start 12/10/16 at 09:30 Ferric Sodium Gluconate Complex/ Sodium Chloride (Ferrlecit/NS) 110 ml @ 110 mls/hr Q24H IVPB ; Start 12/11/16 at 11:00; Stop 12/14/16 at 11:59 Cyanocobalamin (Vitamin B12 Inj) 1,000 mcg DAILY IM Last administered on 08:47; Admin Dose 1,000 MCG; Start 12/10/16 at 16:00 Levothyroxine Sodium (Synthroid) 100 mcg DAILY@06 PO Last administered on 05:25; Admin Dose 100 MCG; Start 12/11/16 at 06:00 Sucralfate (Carafate Susp) 1 gm QID PO Last administered on 12/11/16 08:46; Admin Dose 1 GM; Start 12/10/16 at 21:00 ERVIN BRYAN NP Dec 11, 2016 09:36
[2016-12-11 10:03] LABS: ANISOCYTOSIS 3+ (0-0); EOSINOPHILS % (M) 2 % (0-7); GIANT THROMBO% (M) 2 % (0-0); HYPOCHROMASIA 2+ (0-0); MICROCYTOSIS 3+ (0-0); MONOCYTES % (M) 2 % (0-11); OVALOCYTES 1+ (0-0); PLATELET ESTIMATE NORMAL; POIKILOCYTOSIS 2+ (0-0); POLYCHROMASIA 3+ (0-0)
[2016-12-11] MEDS: SOD FERRIC GLUC COMPLX 125 MG in SOD CHLORIDE 0.9% 100 ML IVPB SCH (10:35)
--- NOTE | 2016-12-11 14:10 | PN ---
Date/Time of Note Date/Time of Note DATE: 12/11/16 TIME: 14:08 Assessment/Plan VTE Prophylaxis VTE Prophylaxis Intervention: contraindicated Lines/Catheters [facility] Saline Lock Urinary Cath still in place: No Assessment/Plan Chief Complaint/Hosp Course 1. Symptomatic microcytic, hypochromic anemia. Status post 3 units of blood transfusion. Iron panel showing significant iron deficiency. Continue iron supplements. Status post esophagogastroduodenoscopy on 12/10/2016 showing multiple gastric polyps, the largest 2 polyps measuring 2 cm and 1.5 cm with superficial ulceration. The EGDscopy also revealed antral gastritis. The patient will be continued on PPI and Carafate. 2. Severe iron deficiency. Continue iron supplements. 3. Menorrhagia. Pelvic ultrasound showing bilateral simple appearing ovarian cysts with no adnexal mass and the uterus that is grossly unremarkable. 4. Cephalgia. Most likely migraine headache. Pending brain MRI. Continue as needed triptans. 5. Hypothyroidism. The patient was started on Synthroid. 6. Reported left breast lump. Breast ultrasound negative for any masses or lumps. Being followed by Oncology. 7. Vaginal candidiasis. We will start the patient on Monistat. 8. Obesity. BMI of 34.5 kg/m. Weight reduction advised. 9. Fluids, electrolytes, and nutrition. The patient currently on a soft diet. 10. DVT prophylaxis. Contraindicated. 11. Gastrointestinal prophylaxis. On proton pump inhibitors. 12. Plan. Await brain MRI. Continue PPI and Carafate. Plan is to discharge the patient home after brain MRI. Case discussed with . Problems: Subjective 24 Hr Interval Summary Free Text/Dictation Denies any overt bleeding. Complains of perineal itching. Exam/Review of Systems Vital Signs Vitals Vital Signs Date Time Temp Pulse Resp B/P Pulse Ox O2 Delivery O2 Flow Rate FiO2 12/11/16 08:44 98.1 71 18 143/77 97 12/10/16 18:52 Room Air 12/10/16 18:20 2.0 Intake and Output 12/10/16 12/10/16 12/11/16 14:59 22:59 06:59 Intake Total 0 ml 1160 ml Balance 0 ml 1160 ml Exam General: Obese 51 year-old female lying in bed in no apparent distress. HEENT: Normocephalic, atraumatic. Eyes: Anicteric sclerae, conjunctivae clear. ENT: Nasal septum midline, oral mucosa moist. Neck supple, no JVD noticed. Respiratory: Bilaterally clear breath sounds. No use of accessory muscles of respiration. No adventitious breath sounds. Cardiovascular: S1, S2 heard. No murmurs or gallops. Abdomen: Soft, nontender, and nondistended. Bowel sounds positive in all 4 quadrants. Genitourinary: Deferred. Extremities: No cyanosis, no clubbing, no edema. Peripheral pulses palpable. Neurologic: Cranial nerves II through XII grossly intact. The patient is awake, alert, and oriented. Skin: Normal skin turgor. No skin rashes. Results Result Diagram: 12/11/16 0450 12/11/16 0450 Results 24 hrs Laboratory Tests Test 12/11/16 04:35 12/11/16 04:50 Phosphorus Level 4.6 Magnesium Level 2.2 White Blood Count 4.9 Red Blood Count 4.43 Hemoglobin 8.6 L Hematocrit 30.9 L Mean Corpuscular Volume 69.8 L Mean Corpuscular Hemoglobin 19.4 L Mean Corpuscular Hemoglobin Concent 27.8 L Red Cell Distribution Width 27.4 H Platelet Count 201 Mean Platelet Volume 9.4 Neutrophils % 68.5 Segmented Neutrophils % (Manual) 72 Lymphocytes % 22.1 Lymphocytes % (Manual) 25 Monocytes % 8.0 Monocytes % (Manual) 2 Eosinophils % 0.8 Eosinophils % (Manual) 2 Basophils % 0.2 Nucleated Red Blood Cells % 0.4 H Neutrophils # 3.3 Absolute Lymphocytes (Manual) 1.2 Lymphocytes # 1.1 Monocytes # 0.4 Absolute Monocytes (Manual) 0.0 L Eosinophils # 0.0 Basophils # 0.0 Nucleated Red Blood Cells # 0.0 Thrombocytosis 2 H Platelet Estimate NORMAL Polychromasia 3+ Hypochromasia 2+ Poikilocytosis 2+ Anisocytosis 3+ Microcytosis 3+ Ovalocytes 1+ Sodium Level 142 Potassium Level 3.9 Chloride Level 102 Carbon Dioxide Level 27 Anion Gap 17 H Blood Urea Nitrogen 9 Creatinine 0.50 Glucose Level 95 Calcium Level 9.3 Total Bilirubin 1.2 Direct Bilirubin 0.00 Indirect Bilirubin 1.2 H Aspartate Amino Transf (AST/SGOT) 20 Alanine Aminotransferase (ALT/SGPT) 30 Alkaline Phosphatase 70 Total Protein 7.2 # Albumin 4.0 Globulin 3.20 Albumin/Globulin Ratio 1.25 Medications Medications Current Medications Ondansetron HCl (Zofran Inj) 4 mg Q6H PRN IV NAUSEA AND/OR VOMITING; Start 03/18 at 00:30 Acetaminophen (Tylenol Tab) 650 mg Q6H PRN PO PAIN LEVEL 1-3 OR FEVER; Start at 00:30 Docusate Sodium (Colace) 100 mg Q12H PRN PO CONSTIPATION; Start 12/10/16 at 00: 30 Bisacodyl (Dulcolax) 5 mg DAILY PRN PO CONSTIPATION; Start 12/10/16 at 00:30 Pantoprazole (Protonix Iv) 40 mg BID@,18 IV Last administered on 12/11/16 05 :25; Admin Dose 40 MG; Start 12/10/16 at 18:00 Cyanocobalamin (Vitamin B12) 1,000 mcg DAILY PO ; Start 12/10/16 at 11:00; Status Future Hold Hydralazine HCl 10 mg 10 mg Q6H PRN IV SBP>160; Start 12/10/16 at 09:30 Ferric Sodium Gluconate Complex/ Sodium Chloride (Ferrlecit/NS) 110 ml @ 110 mls/hr Q24H IVPB Last administered on 12/11/16 10:35; Admin Dose 110 MLS/HR; Start 12/11/16 at 11:00; Stop 12/14/16 at 11:59 Cyanocobalamin (Vitamin B12 Inj) 1,000 mcg DAILY IM Last administered on 08:47; Admin Dose 1,000 MCG; Start 12/10/16 at 16:00 Levothyroxine Sodium (Synthroid) 100 mcg DAILY@06 PO Last administered on 05:25; Admin Dose 100 MCG; Start 12/11/16 at 06:00 Sucralfate (Carafate Susp) 1 gm QID PO Last administered on 12/11/16 12:25; Admin Dose 1 GM; Start 12/10/16 at 21:00 Miconazole (Monistat-7) 2 supp HS VAG ; Start 12/11/16 at 21:00; Stop 12/13/16 at 21:01 KAMILA RICO NP Dec 11, 2016 14:10
--- NOTE | 2016-12-11 15:00 | QN ---
Documentation Comment 51 year old woman with: Hypothyroidism: on LT4 replacement. Antibody panel pending results. Anemia: iron deficiency and work up for B12 deficiency and possible pernicious anemia ongoing. Patient currently off floor for MRI. Will return for full consultation at later date. MD RAJ Grace LINDA MD Dec 11, 2016 15:00
--- NOTE | 2016-12-11 15:12 | RADRPT ---
PROCEDURE: MR Brain without contrast. CLINICAL INDICATION: Chronic headaches. TECHNIQUE: An MRI of the brain was performed on a GE short bore high-definition 3 mary scanner ut ilizing the following sequences: Sagittal and axial T1 weighted, axial T2 weighted, coronal GRE, ax ial diffusion weighted with ADC mapping, and axial FLAIR. COMPARISON: None FINDINGS: No diffusion weighted abnormalities are seen to suggest the presence of acute ischemia or recent inf arct. There is a small focus of GRE susceptibility artifact within the left medial occipital lobe, which is difficult to visualize on the other sequences, and may reflect calcification or perhaps hem osiderin. There is no evidence of acute intracranial hemorrhage, mass effect, or midline shift. No e xtra-axial fluid collections are seen. The ventricles and sulci are normal in size and configuration . The signal intensity is otherwise normal throughout the cerebrum, brainstem, and cerebellum. Nor mal flow voids are visible in the proximal intracranial arteries and dural sinuses, indicating paten cy. The visualized paranasal sinuses are grossly clear. IMPRESSION: 1. There is a small focus of GRE susceptibility artifact in the left medial occipital lobe, which may reflect calcification or hemosiderin. The blunted, this could be further evaluated with CT. Th e findings could reflect sequelae related to a prior traumatic or infectious insult. The possibilit y of an occult cavernous malformation is also raised. 2. The brain is otherwise normal in appearance. RPTAT: HJAH .Hillary Castro MD, MD Date Time Electronically viewed and signed by .Hillary Castro MD, MD on 12/11/2016 15:12 .H/
[2016-12-11 16:16] VITALS: BP 145/72; RESP 20
[2016-12-11 20:00] VITALS: BP 144/68; RESP 18
[2016-12-11] MEDS: ACETAMINOPHEN 325 MG TAB PO PRN (20:12)
[2016-12-11] MEDS ORDERED: MICONAZOLE 200 MG VAG SUPP VAG SCH (21:00)
[2016-12-11] MEDS ORDERED: MICONAZOLE 100 MG VAG SUPP VAG SCH (21:00)
[2016-12-12 02:00] VITALS: BP 141/70; RESP 18
[2016-12-12] MEDS: PANTOPRAZOLE 40 MG INJ IV SCH (05:21)
[2016-12-12] MEDS: LEVOTHYROXINE 100 MCG TAB PO SCH (05:21)
[2016-12-12 05:47] LABS: ABNORMAL IP MESSAGE 1; BASOPHILS % 0.4 % (0.0-2.0); EOSINOPHILS # 0.1 10^3/ul (0.0-0.5); EOSINOPHILS % 1.9 % (0.0-7.0); HEMATOCRIT 31.6 % (37.0-47.0); HEMOGLOBIN 8.8 g/dl (12.0-16.0); LYMPHOCYTES # 1.3 10^3/ul (0.8-2.9); LYMPHOCYTES % 26.5 % (15.0-51.0); MEAN CORPUSCULAR HEMOGLOBIN 19.6 pg (29.0-33.0); MEAN CORPUSCULAR HGB CONC 27.8 g/dl (32.0-37.0); MEAN CORPUSCULAR VOLUME 70.5 fl (82.0-101.0); MEAN PLATELET VOLUME 9.5 fl (7.4-10.4); MONOCYTE # 0.4 10^3/ul (0.3-0.9); MONOCYTES % 8.6 % (0.0-11.0); NEUTROPHILS % 62.4 % (39.0-77.0); PLATELET COUNT 209 10^3/UL (140-415); RED BLOOD COUNT 4.48 10^6/ul (4.20-5.40); RED CELL DISTRIBUTION WIDTH 27.9 % (11.5-14.5); WHITE BLOOD COUNT 4.8 10^3/ul (4.8-10.8)
[2016-12-12 05:53] LABS: POSITIVE DIFF @See below
[2016-12-12 06:03] LABS: PROTEIN, TOTAL 7.1 g/dL (6.1-8.1)
[2016-12-12 06:30] LABS: MAGNESIUM 2.2 mg/dl (1.7-2.5); PHOSPHORUS 4.8 mg/dl (2.5-4.9)
[2016-12-12 06:34] LABS: CALCIUM 9.6 mg/dl (8.4-10.2); CREATININE 0.54 mg/dl (0.44-1.00)
[2016-12-12 08:23] VITALS: BP 132/81; RESP 18
[2016-12-12] MEDS: CYANOCOBALAMIN 1000 MCG INJ IM SCH (08:58)
[2016-12-12] MEDS: SUCRALFATE (100 MG/ML) 10ML CUP PO SCH ×2 (08:58→12:13)
--- NOTE | 2016-12-12 09:37 | PN ---
Date/Time of Note Date/Time of Note DATE: 12/12/16 TIME: 09:35 Assessment/Plan VTE Prophylaxis VTE Prophylaxis Intervention: ambulation Lines/Catheters IV Catheter Type (from [facility]): Saline Lock Urinary Cath still in place: No Assessment/Plan Assessment/Plan Assessment * Anemia upper GI bleed EGD Multiple gastric polyps fundus body and proximal antrum, ranging in size from 5 mm to 2 cm Largest 2 polyps measuring 2 cm and 1.5 cm with superficial ulceration snared and largest 1 retrieved Site of largest polypectomy with persistent oozing, control with Endo Clip 3 Antral gastritis. Rule out H. pylori infection. Biopsies obtained * Menorrhagia Plan * Stool for occult blood * await biopsy result * PPI daily * Monitor hemoglobin and hematocrit daily * case discussed with DR Freedman * Further orders will depend on clinical course Subjective 24 Hr Interval Summary Free Text/Dictation * Course reviewed with RN * patient seen and examined * No untoward incidents overnight Exam/Review of Systems Vital Signs Vitals Vital Signs Date Time Temp Pulse Resp B/P Pulse Ox O2 Delivery O2 Flow Rate FiO2 12/12/16 08:23 98.2 65 18 132/81 97 12/10/16 18:52 Room Air 12/10/16 18:20 2.0 Intake and Output 12/11/16 12/11/16 12/12/16 15:00 23:00 07:00 Intake Total 110 ml 1200 ml 520 ml Balance 110 ml 1200 ml 520 ml Exam Constitutional: alert, oriented Psych: no complaints Neck: non-tender, supple Respiratory: clear to auscultation, normal air movement Cardiovascular: nl pulses, regular rate and rhythm Gastrointestinal: non-tender, soft Musculoskeletal: nl extremities to inspection, nl gait and stance Extremities: normal pulses Neurological: nl mental status, nl speech, nl strength Skin: nl turgor, No rash or lesions Lymph: nl lymph nodes Results Result Diagram: 12/12/16 0454 12/12/16 0454 Results 24 hrs Laboratory Tests Test 12/12/16 04:54 12/12/16 06:15 White Blood Count 4.8 Red Blood Count 4.48 Hemoglobin 8.8 L Hematocrit 31.6 L Mean Corpuscular Volume 70.5 L Mean Corpuscular Hemoglobin 19.6 L Mean Corpuscular Hemoglobin Concent 27.8 L Red Cell Distribution Width 27.9 H Platelet Count 209 Mean Platelet Volume 9.5 Neutrophils % 62.4 Lymphocytes % 26.5 Monocytes % 8.6 Eosinophils % 1.9 Basophils % 0.4 Nucleated Red Blood Cells % 0.0 Neutrophils # 3.0 Lymphocytes # 1.3 Monocytes # 0.4 Eosinophils # 0.1 Basophils # 0.0 Nucleated Red Blood Cells # 0.0 Sodium Level 142 Potassium Level 4.0 Chloride Level 102 Carbon Dioxide Level 27 Anion Gap 17 H Blood Urea Nitrogen 8 Creatinine 0.54 Glucose Level 93 Calcium Level 9.6 Phosphorus Level 4.8 Magnesium Level 2.2 Lab Scanned Report BLOOD TRANSFUSION Medications Medications Current Medications Ondansetron HCl (Zofran Inj) 4 mg Q6H PRN IV NAUSEA AND/OR VOMITING; Start 03/18 at 00:30 Acetaminophen (Tylenol Tab) 650 mg Q6H PRN PO PAIN LEVEL 1-3 OR FEVER Last administered on 12/11/16 20:12; Admin Dose 650 MG; Start 12/10/16 at 00:30 Docusate Sodium (Colace) 100 mg Q12H PRN PO CONSTIPATION; Start 12/10/16 at 00: 30 Bisacodyl (Dulcolax) 5 mg DAILY PRN PO CONSTIPATION; Start 12/10/16 at 00:30 Pantoprazole (Protonix Iv) 40 mg BID@06,18 IV Last administered on 12/12/16 05 :21; Admin Dose 40 MG; Start 12/10/16 at 18:00 Cyanocobalamin (Vitamin B12) 1,000 mcg DAILY PO ; Start 12/10/16 at 11:00; Status Future Hold Hydralazine HCl 10 mg 10 mg Q6H PRN IV SBP>160; Start 12/10/16 at 09:30 Ferric Sodium Gluconate Complex/ Sodium Chloride (Ferrlecit/NS) 110 ml @ 110 mls/hr Q24H IVPB Last administered on 12/11/16 10:35; Admin Dose 110 MLS/HR; Start 12/11/16 at 11:00; Stop 12/14/16 at 11:59 Cyanocobalamin (Vitamin B12 Inj) 1,000 mcg DAILY IM Last administered on 08:58; Admin Dose 1,000 MCG; Start 12/10/16 at 16:00 Levothyroxine Sodium (Synthroid) 100 mcg DAILY@06 PO Last administered on 05:21; Admin Dose 100 MCG; Start 12/11/16 at 06:00 Sucralfate (Carafate Susp) 1 gm QID PO Last administered on 12/12/16 08:58; Admin Dose 1 GM; Start 12/10/16 at 21:00 Miconazole (Monistat-7) 2 supp HS VAG Last administered on 12/11/16 20:14; Admin Dose 2 SUPP; Start 12/11/16 at 21:00; Stop 12/13/16 at 21:01 ERVIN BRYAN NP Dec 12, 2016 09:37
[2016-12-12] MEDS: ACETAMINOPHEN 325 MG TAB PO PRN (11:02)
[2016-12-12] MEDS: SOD FERRIC GLUC COMPLX 125 MG in SOD CHLORIDE 0.9% 100 ML IVPB SCH (11:07)
[2016-12-12] MEDS ORDERED: SUMATRIPTAN 6 MG/0.5 ML INJ SC ONE (12:00)
--- NOTE | 2016-12-12 13:02 | PDOCDIS ---
Discharge Instructions DIAGNOSIS Discharge Diagnosis 1. Symptomatic anemia. 2. Hypothyroidism. 3. Migraine headache. CONDITION Patient Condition: Stable HOME CARE INSTRUCTIONS: Diet Instructions: Regular FOLLOW UP/APPOINTMENTS Follow-up Plan German Ro MD Specialty: Internal Medicine Office Address: [address] [place], [place] [id number] Office OTHER ORDERS: Other Orders: 1. Take medications as per prescription. Avoid NSAIDs including ibuprofen. 2. Take a regular diet as tolerated 3. Follow-up with your primary care physician 1 week. If you do not have a primary care physician, please call Dr. German Ro's office. 4. Please follow-up with the biopsy results at [facility]. 5. Take iron rich diet. 6. Please go to the nearest emergency room if you continue to have significant headache, persistent dizziness, or any other unusual signs/symptoms. KAMILA RICO NP Dec 12, 2016 13:02
[2016-12-12] MEDS ORDERED: PANT40TA3 PO (13:06)
[2016-12-12] MEDS ORDERED: SYN1 PO (13:06)
[2016-12-12] MEDS ORDERED: CARAS PO (13:06)
[2016-12-12] MEDS ORDERED: CYAN500T46 PO (13:06)
[2016-12-12] MEDS ORDERED: Miconazole VAG (13:06)
[2016-12-12] MEDS ORDERED: BUTA1CAP38 PO (13:08)
--- NOTE | 2016-12-12 13:30 | CONS ---
Date/Time of Note Date/Time of Note DATE: 12/12/16 TIME: :17 Assessment/Plan Assessment/Plan Chief Complaint/Hosp Course 51 year old woman with elevated TSH. Problems: (1) Hypothyroid Status: Acute Comment: Newly diagnosed (likely) autoimmune thyroiditis. Started on Thyroid replacement therapy. Qualifiers: Qualified Code: E03.9 - Hypothyroidism, unspecified type (2) Anemia Status: Acute Comment: Both iron defiecency anemia and B12 deficiency. Strong association with Autoimmune thryoid disorder and pernicious anemia. Work up in progress. Qualifiers: Qualified Code: D64.9 - Anemia, unspecified type Additional Assessment/Plan Clinically stable at this time. Will need to recheck thyroid function in 4 weeks to determine the need for dose adjustments. Continue Levothyroxine 100mcg Daily. Consultation Date/Type/Reason Admit Date/Time Date of Consultation: Dec 12, 2016 Type of Consultation: Endocrine Reason for Consultation Thyroid Disorder Hx of Present Illness Patient is a 51-year-old female with no previous history of medical problems who presents with low hemoglobin and high TSH. She had routine blood test done and was called by her doctor to go to the ER because of the abnormal results. She complains of fatigue and constipation. Has noticed abundant hair loss. Denies recent weight gain. She does state frequent use of Advil for headaches that occur on a regular basis. Constitutional: improved, no complaints Eyes: no complaints ENT: no complaints Respiratory: no complaints Cardiovascular: no complaints Gastrointestinal: no complaints Genitourinary: no complaints Musculoskeletal: no complaints Skin: no complaints Neurologic: no complaints Endocrine: no complaints Lymphatic: no complaints Psychological: no complaints Immunologic: no complaints Past Medical History Medical History: no pertinent history, other (headache) Past Surgical History Past Surgical Hx: no surgical history, other () Family History Significant Family History: diabetes, other (Strong family history of thyroid disease. Sister with hypothyroidism. Daughter with Graves disease.) Social History Alcohol Use: none Smoking Status: Never smoker Drug Use: none Exam/Review of Systems Vital Signs Vitals Vital Signs Date Time Temp Pulse Resp B/P Pulse Ox O2 Delivery O2 Flow Rate FiO2 12/12/16 08:23 98.2 65 18 132/81 97 12/10/16 18:52 Room Air 12/10/16 18:20 2.0 Intake and Output 12/11/16 12/11/16 12/12/16 15:00 23:00 07:00 Intake Total 110 ml 1200 ml 520 ml Balance 110 ml 1200 ml 520 ml Exam Constitutional: alert, obese, oriented, well developed Psych: no complaints Head: normocephalic Eyes: EOMI, PERRL, nl conjunctiva, nl sclera Neck: supple, thyromegaly (small) Respiratory: clear to auscultation Cardiovascular: nl pulses, regular rate and rhythm Gastrointestinal: soft Musculoskeletal: muscle tone (normal), nl extremities to inspection, nl gait and stance Extremities: edema (none), normal pulses Neurological: DTR's symmetric, nl mental status, nl speech, nl strength Skin: nl turgor Lymph: nl lymph nodes Results Labs reviewed Result Diagram: 12/12/16 0454 12/12/16 0454 Results 24 hrs Laboratory Tests Test 12/12/16 04:54 12/12/16 06:15 White Blood Count 4.8 Red Blood Count 4.48 Hemoglobin 8.8 L Hematocrit 31.6 L Mean Corpuscular Volume 70.5 L Mean Corpuscular Hemoglobin 19.6 L Mean Corpuscular Hemoglobin Concent 27.8 L Red Cell Distribution Width 27.9 H Platelet Count 209 Mean Platelet Volume 9.5 Neutrophils % 62.4 Lymphocytes % 26.5 Monocytes % 8.6 Eosinophils % 1.9 Basophils % 0.4 Nucleated Red Blood Cells % 0.0 Neutrophils # 3.0 Lymphocytes # 1.3 Monocytes # 0.4 Eosinophils # 0.1 Basophils # 0.0 Nucleated Red Blood Cells # 0.0 Sodium Level 142 Potassium Level 4.0 Chloride Level 102 Carbon Dioxide Level 27 Anion Gap 17 H Blood Urea Nitrogen 8 Creatinine 0.54 Glucose Level 93 Calcium Level 9.6 Phosphorus Level 4.8 Magnesium Level 2.2 Lab Scanned Report BLOOD TRANSFUSION Medications Medications Current Medications Ondansetron HCl (Zofran Inj) 4 mg Q6H PRN IV NAUSEA AND/OR VOMITING Last administered on 12/12/16 11:03; Admin Dose 4 MG; Start 12/10/16 at 00:30 Acetaminophen (Tylenol Tab) 650 mg Q6H PRN PO PAIN LEVEL 1-3 OR FEVER Last administered on 12/12/16 11:02; Admin Dose 650 MG; Start 12/10/16 at 00:30 Docusate Sodium (Colace) 100 mg Q12H PRN PO CONSTIPATION; Start 12/10/16 at 00: 30 Bisacodyl (Dulcolax) 5 mg DAILY PRN PO CONSTIPATION; Start 12/10/16 at 00:30 Pantoprazole (Protonix Iv) 40 mg BID@06,18 IV Last administered on 12/12/16 05 :21; Admin Dose 40 MG; Start 12/10/16 at 18:00 Cyanocobalamin (Vitamin B12) 1,000 mcg DAILY PO ; Start 12/10/16 at 11:00; Status Future Hold Hydralazine HCl 10 mg 10 mg Q6H PRN IV SBP>160; Start 12/10/16 at 09:30 Ferric Sodium Gluconate Complex/ Sodium Chloride (Ferrlecit/NS) 110 ml @ 110 mls/hr Q24H IVPB Last administered on 12/12/16 11:07; Admin Dose 110 MLS/HR; Start 12/11/16 at 11:00; Stop 12/14/16 at 11:59 Cyanocobalamin (Vitamin B12 Inj) 1,000 mcg DAILY IM Last administered on 08:58; Admin Dose 1,000 MCG; Start 12/10/16 at 16:00 Levothyroxine Sodium (Synthroid) 100 mcg DAILY@06 PO Last administered on 05:21; Admin Dose 100 MCG; Start 12/11/16 at 06:00 Sucralfate (Carafate Susp) 1 gm QID PO Last administered on 12/12/16 12:13; Admin Dose 1 GM; Start 12/10/16 at 21:00 Miconazole (Monistat-7) 2 supp HS VAG Last administered on 12/11/16 20:14; Admin Dose 2 SUPP; Start 12/11/16 at 21:00; Stop 12/13/16 at 21:01 Procedures Procedures Thyroid ultrasound reviewed. Diffusely heterogenous thyroid gland bilaterally without thyroid mass. GABRIELLE ANTHONY MD Dec 12, 2016 13:27
--- NOTE | 2016-12-12 14:11 | DS ---
Date/Time of Note Date/Time of Note DATE: 12/12/16 TIME: 14:00 Discharge Summary Admission/Discharge Info Admit Date/Time Dec 09, 2016 at 22:13 Discharge Date/Time Discharge Diagnosis 1. Symptomatic microcytic, hypochromic anemia. 2. Severe iron deficiency. 3. Menorrhagia. 4. Migraine headache. 5. Hypothyroidism. 6. Reported left breast lump. Breast ultrasound negative for any masses or lumps. 7. Vaginal candidiasis. 8. Vitamin B12 deficiency. 9. Obesity. Patient Condition: Stable Consults 1. Joby Freedman MD, Gastroenterology. 2. Enoc Turner MD, Hematology/Oncology. 3. Imani Tinajero MD, Endocrinology. Procedures Esophagogastroduodenoscopy Impression: * Multiple gastric polyps fundus body and proximal antrum, ranging in size from 5 mm to 2 cm * Largest 2 polyps measuring 2 cm and 1.5 cm with superficial ulceration snared and largest 1 retrieved * Site of largest polypectomy with persistent oozing, control with Endo Clip 3 * Antral gastritis. Rule out H. pylori infection. Biopsies obtained Left Breast Ultrasound IMPRESSION: Unremarkable left breast ultrasound. Recommend outpatient diagnostic mammogram to complete the workup for the palpable lump. Pelvic Ultrasound IMPRESSION: 1. Bilateral simple-appearing ovarian cysts are seen measuring up to 2.8 cm on the right. No adnexal mass or pelvic free fluid is identified. 2. Uterus is grossly unremarkable. Thyroid Ultrasound IMPRESSION: 1. Diffusely heterogeneous thyroid with no discrete nodule. Brain MRI IMPRESSION: 1. There is a small focus of GRE susceptibility artifact in the left medial occipital lobe, which may reflect calcification or hemosiderin. The blunted, this could be further evaluated with CT. The findings could reflect sequelae related to a prior traumatic or infectious insult. The possibility of an occult cavernous malformation is also raised. 2. The brain is otherwise normal in appearance. Hx of Present Illness Chief complaint: Tired and weak, low hemoglobin through outpatient blood work The patient is a 51-year-old female with no medical problems who presents with low hemoglobin and high TSH. She had routine blood test done and was called by her doctor to go to the ER because of the abnormal results. She denied any rectal bleeding. She did feel diffuse weakness and headache. She stated that she has been feeling weak and lightheaded for weeks. She stated that she has irregular periods however they are with heavy bleeding and abdominal pain. Patient also reported that she has experienced approximately 10 pound weight loss over the last 2 months. Also of note the patient was questioned regarding any previous mammogram history she stated that she had a mammogram 3 years ago. She also stated that she had a breast cyst that was removed from her left breast now she appears to have noticed another sort of lump on the left breast on the lateral side which is different from the location of her previous cyst. She denied any rectal bleeding. Denied any nausea vomiting or fevers. The headache she described as bandlike. Denied any focal weakness. She did report that she takes ibuprofen on a regular basis for her headache. Allergies: NKDA Medications: None Hospital Course The patient was admitted to inpatient setting. Blood transfusion was ordered. A gastroenterology consult, oncology consult and endocrinology consult was obtained. The patient underwent a esophagogastroduodenoscopy that showed multiple gastric polyps in the fundus, body, and proximal antrum ranging in size from 5 mm to 2 cm. The largest 2 polyps measuring 2 cm and 1.5 cm with superficial ulceration was snared. The site of the largest polypectomy was oozing. The patient got Endo Clip [address] The esophagogastroduodenoscopy also revealed antral gastritis. The patient was already on proton pump inhibitors. The patient was also added on Carafate. The patient's pathology results from biopsy are pending at this time. The patient was also noticed to have significant iron deficiency as well as vitamin B12 deficiency. The patient was started on iron supplements and vitamin B12. The patient was also evaluated by hematology. The patient is being evaluated for any underlying pernicious anemia. Tests for this are pending at this time. The patient complained of a left breast lump/cyst. The patient underwent a lefl breast ultrasound that was negative. The patient also complained of menometrorrhagia. The patient underwent a pelvic ultrasound that showed bilateral simple appearing ovarian cysts measuring up to 2.8 cm on the right with no adnexal mass or pelvic free fluid and a grossly unremarkable uterus. The patient also complained of cephalgia. The patient's headache was classically describing migraine headache. The patient underwent a brain MRI that was negative for any acute intracranial findings. The patient was newly diagnosed with hypothyroidism. The patient was seen and evaluated by endocrinology. The patient underwent a thyroid ultrasound that showed a diffusely heterogeneous thyroid with no discrete nodule. The patient was also noticed to have vaginal candidiasis. The patient was started on Monistat. Patient had a stable hospital course. The patient is stable to be discharged home to be followed up as outpatient for further workup. She was instructed to avoid any NSAIDs. Discharge Instructions 1. Take medications as per prescription. Avoid NSAIDs including ibuprofen. 2. Take a regular diet as tolerated 3. Follow-up with your primary care physician 1 week. If you do not have a primary care physician, please call Dr. German Ro's office. 4. Please follow-up with the biopsy results at [facility]. 5. Take iron rich diet. 6. Please go to the nearest emergency room if you continue to have significant headache, persistent dizziness, or any other unusual signs/symptoms. Patient verbalized understanding of her discharge instructions. Case discussed with . Home Meds Active Scripts Cduqcnfnnn-Jqfbwinojpkeb-Odzosbom* (Fioricet*) 50-300-40 Mg Capsule, 1 CAP PO Q6H Y for PAIN, #10 CAP Prov:KAMILA RICO NP 12/12/16 Pantoprazole* (Protonix*) 40 Mg Tablet., 40 MG PO BID, #60 TAB Prov:KAMILA RICO NP 12/12/16 [Miconazole] 1 SUPP SUPP No Conflict Check, 1 SUPP VAG HS, #2 SUPP Prov:KAMILA RICO NP 12/12/16 Levothyroxine Sodium (Levothroid) 100 Mcg Tablet, 100 MCG PO DAILY@06, #30 TAB Prov:KAMILA RICO NP 12/12/16 Cyanocobalamin* (Vitamin B12*) 500 Mcg Tab, 1000 MCG PO DAILY, #30 TAB Prov:KAMILA RICO NP 12/12/16 Sucralfate* (Carafate*) 1 Gm/10 Ml Susp, 1 GM PO QID, #120 TAB Prov:KAMILA RICO NP 12/12/16 Follow-up Plan Follow-up with your PCP in 1 week. Primary Care Provider Virgen Wisdom Time spent on discharge: > 30 minutes Pending Labs Laboratory Tests Test 12/12/16 04:54 12/12/16 06:15 White Blood Count 4.810^3/ul (4.8-10.8) Red Blood Count 4.4810^6/ul (4.20-5.40) Hemoglobin 8.8g/dl (12.0-16.0) Hematocrit 31.6% (37.0-47.0) Mean Corpuscular Volume 70.5fl (82.0-101.0) Mean Corpuscular Hemoglobin 19.6pg (29.0-33.0) Mean Corpuscular Hemoglobin Concent 27.8g/dl (32.0-37.0) Red Cell Distribution Width 27.9% (11.5-14.5) Platelet Count 28866^3/UL (140-415) Mean Platelet Volume 9.5fl (7.4-10.4) Neutrophils % 62.4% (39.0-77.0) Lymphocytes % 26.5% (15.0-51.0) Monocytes % 8.6% (0.0-11.0) Eosinophils % 1.9% (0.0-7.0) Basophils % 0.4% (0.0-2.0) Nucleated Red Blood Cells % 0.0/100WBC (0.0-0.0) Neutrophils # 3.010^3/ul (1.6-7.5) Lymphocytes # 1.310^3/ul (0.8-2.9) Monocytes # 0.410^3/ul (0.3-0.9) Eosinophils # 0.110^3/ul (0.0-0.5) Basophils # 0.010^3/ul (0.0-0.1) Nucleated Red Blood Cells # 0.010^3/ul (0.0-0.0) Sodium Level 142mmol/L (135-144) Potassium Level 4.0mmol/L (3.5-5.1) Chloride Level 102mmol/L (97-110) Carbon Dioxide Level 27mmol/L (21-31) Anion Gap 17 (8-16) Blood Urea Nitrogen 8mg/dl (7-20) Creatinine 0.54mg/dl (0.44-1.00) Glucose Level 93mg/dl (70-220) Calcium Level 9.6mg/dl (8.4-10.2) Phosphorus Level 4.8mg/dl (2.5-4.9) Magnesium Level 2.2mg/dl (1.7-2.5) Lab Scanned Report BLOOD [id number] KAMILA RICO NP Dec 12, 2016 14:10
[2016-12-12 14:59] VITALS: BP 142/85; RESP 18
[2016-12-13 12:02] LABS: THYROID MICROSOMAL ANTIBODY 117 IU/mL (<9)
[2016-12-13 17:50] LABS: HOMOCYSTEINE - CARDIOVASCULAR 55.6 umol/L (<10.4)
[2016-12-13 18:32] LABS: INTRINSIC FACTOR AB NEGATIVE
[2016-12-14 20:29] LABS: ALBUMIN 4.1 g/dL (3.8-4.8)
--- NOTE | 2016-12-16 10:55 | GILP ---
DATE OF PROCEDURE: PROCEDURE: Esophagogastroduodenoscopy with polypectomy, esophagogastroduodenoscopy with endoclip placement, esophagogastroduodenoscopy with multiple biopsies. HISTORY AND INDICATIONS: Patient is being evaluated for anemia. PREMEDICATION: Monitored anesthesia care by anesthesiologist. INSTRUMENT USED: Olympus panendoscope. TECHNIQUE: After informed consent, with the patient/relatives understanding the procedure, its indications, potential risks and complications, including but not limited to: allergic reaction, bleeding, perforation or infection, and after all pertinent questions were answered to the patient's satisfaction, the patient/relatives signed witnessed informed consent. Following this, premedication was administered slowly IV push under careful cardiovascular and respiratory monitoring with pulse oximetry, automatic blood pressure and personnel monitor. Once the sedative effect was achieved the patient was place in the left lateral decubitus, the panendoscope was introduced and advanced under visual control. Careful examination of the upper gastrointestinal tract, both on insertion as well as withdrawal of the instrument disclosed the following findings: ESOPHAGUS: The mucosa of the entire esophagus appears within normal limits. T here is no evidence of esophagitis, varices, neoplasm or stricture. No Hiatal Hernia identified. STOMACH: Upon entrance to the stomach air was insufflated, the gastric garcia distended normally. There were erythema and edema of the mucosa of distal stomach. The proximal stomach, however, showed multiple gastric polyps, measuring in size from to 2 cm. The 2 largest ones, measuring 2 cm and 1.5 cm, had superficial ulceration. A polypectomy snare was introduced, and 2 largest polyps were removed. Only the largest one could be retrieved, as the other one went through the pylorus. An endoclip was placed to control persistent oozing at the site of the largest polypectomy. Biopsies had been obtained of the antrum of the stomach. PYLORUS: The pylorus appears patent and within normal limits, with no evidence of gastric outlet obstruction. DUODENUM: The duodenal mucosa was carefully examined in the duodenal bulb as well as the second portion of the duodenum and appears unremarkable with no evidence of duodenitis, ulcer or neoplasm. The instrument was then withdrawn, the patient tolerated the procedure well and was transfer out of the endoscopy suite awake, and in good condition to continue recovery under observation. IMPRESSION: 1. Multiple gastric polyps, fundus and body and proximal antrum of the stomach, ranging in size from to 2 cm. Largest 2 polyps, measuring 2 and 1.5 cm respectively, showed evidence of superficial ulceration and were snared, and unfortunately only 1 of them could be retrieved. Only the largest one could be retrieved. The other one was lost as it went through the pylorus. 2. Slight oozing was noted at polypectomy site, and 3 endoclips were placed with complete cessation of bleeding. 3. Antral gastritis, rule out Helicobacter pylori infection. Biopsies were obtained. RECOMMENDATIONS: Close observation. Review pathology. Further plans will depend on review of pathology. Patient will likely require further polypectomy. Dictated By: Joby Freedman MD /duke/laith /Document#: [id number]
== END 2016-12-12 15:30 | disposition home or self-care (01) | DRG 812 ==
LOC: E/R 19:44 → MS3 22:13 → PP2 12-10 15:22
PROVIDERS: ADMIT Family Medicine; ATTEND Family Medicine
PROC: 30233N1 Transfusion of Nonautologous Red Blood Cells into Peripheral Vein, Percutaneous Approach (ICD-10-PCS; principal; 2016-12-09)
PROC: 0DB68ZX Excision of Stomach, Via Natural or Artificial Opening Endoscopic, Diagnostic (ICD-10-PCS; 2016-12-10 18:30)
DX: D51.3 Other dietary vitamin B12 deficiency anemia (principal); K25.9 Gastric ulcer, unspecified as acute or chronic, without hemorrhage or perforation; K31.7 Polyp of stomach and duodenum; B37.3 Candidiasis of vulva and vagina; G43.909 Migraine, unspecified, not intractable, without status migrainosus; D50.9 Iron deficiency anemia, unspecified; E03.9 Hypothyroidism, unspecified; D64.9 Anemia, unspecified; R63.4 Abnormal weight loss; Z68.34 Body mass index [BMI] 34.0-34.9, adult; N92.1 Excessive and frequent menstruation with irregular cycle; N63 Unspecified lump in breast; K29.70 Gastritis, unspecified, without bleeding; E06.3 Autoimmune thyroiditis
CPT/HCPCS: 36415; 36430; 70551; 76536; 76642; 76856; 80048; 80053; 80061; 82533; 82607; 82728; 82746; 82784; 83010; 83036; 83090; 83540; 83615; 83735; 83921; 84100; 84155; 84165; 84439; 84442; 84443; 84484; 85025; 85610; 85730; 86320; 86340; 86376; 86850; 86900; 86901; 86920; 88305; 88312; 93005; 96374; J1940; C9113; J2405; J2916; J3030; J3420; J7040; P9016